=== PATIENT | male | born 2000 | race Caucasian/White ===

== ENCOUNTER 2021-11-16 09:31 | Emergency (ER) | payer OTHER ==
[~2021-11-16] VITALS: Ht 170.2 cm; Wt 75.0 kg
[2021-11-16] MEDS ORDERED: CIPR7.5D5 OTIC (11:56)
[2021-11-16] MEDS ORDERED: ACETAMINOPHEN 325 MG TAB PO ONE (12:00)
[2021-11-16 12:14] VITALS: BP 120/75
== END 2021-11-16 12:15 | disposition home or self-care (01) ==
LOC: M ED 09:31
DX: H66.93 Otitis media, unspecified, bilateral (principal); Z88.0 Allergy status to penicillin